=== PATIENT | female | born 1980 | race Asian ===

== ENCOUNTER 2017-03-26 16:57 | Inpatient (IN) ==
[2017-03-26] MEDS ORDERED: Ondansetron 4 MG/2 ML VIAL IVP PRN (17:03)
[2017-03-26] MEDS ORDERED: Naloxone 0.4 MG/ML INJ IVP PRN (17:03)
[2017-03-26] MEDS ORDERED: *HR* Nalbuphine 20 MG/ML AMPUL IVP PRN (17:03)
[2017-03-26] MEDS ORDERED: Lidocaine 1% 20 ML MDV INFILT PRN (17:03)
[2017-03-26] MEDS ORDERED: miSOPROStol 25 MCG TABLET VG PRN (17:03)
[2017-03-26] MEDS ORDERED: Famotidine 20 MG/2 ML VIAL IVP PRN (17:03)
--- NOTE | 2017-03-26 17:27 | OB/GYN History & Physical ---
Date of Encounter: 03/26/17 Time of Encounter: 17:04 Assessment and Plan (1) 39 weeks gestation of Current visit: Yes Status: Acute at 39 1/7 weeks gestation presents for IOL secondary to AMA. Blood Type: O+, Antibody negative GBS: Negative Hep B: non-reactive HIV: non-reactive RPR: Negative Rubella: Positive Varicella:Positive Plan: -Admit for IOL -Galva, EFM -CBC, UDS -Cytotec 25mg VG Q4hrx2 -LR 1L @125cc/hr -Clear liquid diet -Nubain 10mg IVP Q2h PRN -Epidural when able (2) Elective induction of labor planned Current visit: Yes Status: Acute (3) Advanced maternal age during in third trimester Current visit: Yes Status: Acute History of Present Illness Chief complaint: IOL HPI: Ms. Berry is a year old female at 39 1/7 weeks gestation who presents to L& D for IOL secondary to AMA. Her has been uncomplicated. She denies any vaginal bleeding, pain, itching, foul smelling discharge or leaking fluid. She has positive movement. Denies DIAL, dizziness, fever, chills, CP, SOB, Nausea, vomiting. Blood Type: O+, Antibody negative GBS: Negative Hep B: non-reactive HIV: non-reactive RPR: Negative Rubella: Positive Varicella:Positive Past Med Surg Social Fam HX - Past Medical History Attestation: Yes The following information was validated with the patient. Medical history: no medical history - Social History Smoking Status: Unknown if ever smoked Alcohol use: none - Family History Sister Age: 33 Living Status: Still Living Hx Family Cardiac Disorders: No Hx Family Respiratory Disorders: No Hx Family Cancer: No Hx Family GI Disorders: No Hx Family Genitourinary Disorders: No Hx Family Endocrine Disorder: No Hx Family Musculoskeletal Disorders: No Hx Family Neuromuscular Disorders: No Hx Family Neurologic Disorders: No Hx Family HEENT Disorders: No Hx Family Autoimmune Disorders: No Hx Family Reproductive Disorders: No Hx Family Psychosocial Disorders: No Hx Family Medical Disorders: No Obstetrical History - Pregnancies : 1 Para: 0 Term: 0 : 0 Ab's: 0 Livin Medications and Allergies Formula Tablet 1 tab PO DAILY 03/26/17 [History] 3 Allergy/AdvReac Type Severity Reaction Status Date / Time No Known Allergies Allergy Verified 04/05/15 11:06 Review of System OB All systems PM: reviewed and no additional remarkable complaints except as stated Exam - Constitutional Constitutional: well developed, well nourished, no acute distress, average body habitus - HEENT HEENT: EOMI, PERRL, Normocephaly, Mucus Membranes Moist - Neck Neck exam: full ROM, normal inspection, supple, trachea midline - Lungs Respiratory exam: CTAB - Cardiovascular Cardiovascular exam: RRR, +S1, +S2 - Abdomen Abdomen: Present: bowel sounds normal, gravid, non tender - Extremities Extremities exam: normal capillary refill, normal inspection, radial pulses palpable and symmetrical Deep Tendon Reflex Grade: 2+ Normal - Vagina Vagina: Present: normal moisture - Cervix Dilation: 0 (FT) Effacement: 80 - Uterus Uterus exam: Present: normal size, normal contour Results Result Diagrams: 03/26/17 17:24 All other labs normal.
[2017-03-26 17:33] LABS: Basophils # 0.1 K/mcL (0.0-0.2); Basophils % 0.4 %; Eosinophils # 0.1 K/mcL (0.0-0.6); Eosinophils % 0.6 %; Hematocrit 37.2 % (35.3-44.9); Hemoglobin 12.4 g/dL (11.5-15.4); Immature Platelets 3.4 % (1.1-6.1); Lymphocytes # 2.1 K/mcL (0.6-4.6); Lymphocytes % 16.6 %; Mean Corpuscular HGB Conc 33.3 g/dL (31.6-35.5); Mean Corpuscular Hemoglobin 28.8 pg (28.0-33.3); Mean Corpuscular Volume 86.5 fL (83.0-100.0); Mean Platelet Volume 9.8 fL (9.4-12.4); Monocytes # 0.8 K/mcL (0.0-1.3); Monocytes % 6.5 %; Neutrophils # 9.5 K/mcL (1.6-8.9); Platelet Count 316 K/mcL (140-400); Red Cell Distribution Width 14.6 % (11.5-14.5); Segmented Neutrophils % 73.9 %
[2017-03-26] MEDS: Ringers Solution, Lactated 1,000 ML IVC SCH (18:52)
--- NOTE | 2017-03-26 20:26 | Anesthesia Evaluation PreOp ---
Date of Encounter: 03/26/17 Time of Encounter: 20:23 - Past History Planned Operation: vaginal del, G1 induction Cardiac History: Denies any Significant Hx Pulmonary History: Denies Any Significant HX STUNNER ANIMAL History: Denies Any Significant HX Other Medical History: Denies Any Significant HX Anesthesia History: No Prior Anesthetic Complications, Past Anesthesia (no family hx. of problems) Alcohol Use: none Drug use: none Medications and Allergies Formula Tablet 1 tab PO DAILY 03/26/17 [History] 3 Allergy/AdvReac Type Severity Reaction Status Date / Time No Known Allergies Allergy Verified 04/05/15 11:06 Anesthesia Results - Labs 03/26/17 17:24 Anesthesia Exam - HEENT Pupil (Motor): Pupils equal Mallampati: II Teeth: Normal Oral Opening: Greater than 3 - STUNNER ANIMAL LOC: Oriented STUNNER ANIMAL Motor: Normal RUE, Normal LUE, Normal RLE, Normal LLE, Normal Face STUNNER ANIMAL Sensory: Normal: RUE, LUE, RLE, LLE, Face - Cardiac Rhythm: Regular Murmur: None - Pulmonary Breath Sounds: bilateral Clear Respiratory Effort: Symmetrical Anesthesia Assess/Plan ASA Score: 2 Modified [place] Scale for Level of Consciousness: Cooperative, oriented, and tranquil Anesthetic Plan: General, Regional Monitoring Plan: Standard Monitors
--- NOTE | 2017-03-26 20:35 | OB Labor Progress Note ---
Date of Encounter: 03/26/17 Time of Encounter: 20:33 Labor Progress Note - Subjective Subjective: Resting comfortably in bed. - Vital Signs Vital Signs: VSS - Cervix Cervix: 1/50/-1 midposition medium consistency - Heart Tones Heart Tones: 160's with moderate variability and 15 x 15 accels and no decels. Category I tracing. - [place]: Contractions every 3-5 minutes lasting 45-60 seconds in length. Palpate mild. - Interventions Interventions: Attempted Cervical velazquez bulb placement x1. Unable to place. Will give second dose of cyctotec after uterus relaxes. Attempt cervical velazquez if needed after next dose of cytotec. - Plan Plan: Continue routine labor management GBS negative Patient may have nubain upon request/epidural after 3cm dilated Attempt cervical velazquez placement after next dose of cytotec Cytotec 4 hour after first dose Anticipate vaginal delivery POC per consult with Dr Jones.
[2017-03-27] MEDS: Ringers Solution, Lactated 1,000 ML IVC SCH ×3 (00:22→03:58)
--- NOTE | 2017-03-27 01:11 | OB Labor Progress Note ---
Date of Encounter: 03/27/17 Time of Encounter: 01:09 Labor Progress Note - Subjective Subjective: Pt getting more uncomfortable with uc's s/p 1 dose of cytotec. - Cervix Cervix: 2/80/-2 - Heart Tones Heart Tones: RNST - Funk Funk: UC's q 3 min - Interventions Interventions: Moon catheter placed into cervix without difficulty. Pt tolerated well. Balloon filled with 40 cc sterile saline - Plan Plan: Expect
[2017-03-27] MEDS ORDERED: Epidural Premix (fent/bupiv) 110 ML EP ONE ×2 (02:02→09:21)
[2017-03-27] MEDS ORDERED: EPHEDrine 50 MG/ML VIAL ONE (02:34)
--- NOTE | 2017-03-27 02:47 | Anesthesia Procedures ---
Date of Encounter: 03/27/17 Time of Encounter: 02:13 Procedures: Anesthesia - Epidural/Spinal Patient ID/Chart reviewed: Yes Patient examined: Yes OB Eval: Gestational age: term OB Eval: : 1 OB Eval: Contractions: Non-stressed pattern Consent Obtained: No Supplemental Oxygen: None/Room Air Site Prep: Aseptic Technique, Sterile prep and drape, 0.5% Chlorhexidine/Alcohol Patient position: right lateral decubitus Local Anesthetic: Lidocaine 1% Amount of Local Anesthetic used: 2 Touhy Needle Gauge: 18 Touhy Needle Depth (cm): 6 Catheter Depth at Skin (cm): 10 Test Dose (1.5% Lido + Epi): Volume given (mls): 3 Test Dose Result: Negative Loading Dose: Other: 10ml from solution Loading Dose Administered: Thru Catheter Infusion Med: 0.125% Bupivacaine w/ 2 mcg/ml Fentanyl Infusion Rate (mls/hr): [address]: Tegaderm, Tape Interspace Used: L3-L4 Loss of Resistance (DORETHA): Yes (saline) Blood: No CSF: No Paresthesia: No Procedure: vss, mild hypotension = tx with 10mg ephedrine, FHR stable per RNs;
[2017-03-27] MEDS ORDERED: Oxytocin 20 units/ LR 1000 mL 20 UNIT/1,000 ML BAG IVC SCH ×3 (04:30→21:31)
[2017-03-27 06:31] LABS: Amphetamine Screen,Urine Negative ng/mL (Cutoff=1000); Barbiturate Screen,Urine Negative ng/mL (Cutoff=200); Benzodiazepines Screen,Urine Negative ng/mL (Cutoff=200); Cannabinoid Screen,Urine Negative ng/mL (Cutoff = 50); Cocaine Screen,Urine Negative ng/mL (Cutoff= 300); Opiate Screen,Urine Negative ng/mL (Cutoff=300); Phencyclidine Screen,Urine Negative ng/mL (Cutoff=25)
--- NOTE | 2017-03-27 10:52 | OB Labor Progress Note ---
Date of Encounter: 03/27/17 Time of Encounter: 10:50 Labor Progress Note - Subjective Subjective: Pt with epidural, feels rectal pressure with contractions, - Cervix Cervix: 7/100/0 - Heart Tones Heart Tones: 150/moderate/+accels/variables/ Cat II - [place]: IUPC placed - Interventions Interventions: AROM clear fluid IUPC placed. positioned to right lateral with peanut ball - Plan Plan: Continue pitocin per policy Anticipate
[2017-03-27] MEDS ORDERED: Lidocaine/EPI 1:200k 2% PF 20 ML VIAL ONE (13:44)
[2017-03-27] MEDS ORDERED: Dexamethasone 4 MG/ML VIAL ONE (13:46)
[2017-03-27] MEDS ORDERED: Ondansetron 4 MG/2 ML VIAL ONE (13:46)
--- NOTE | 2017-03-27 13:57 | Anesthesia Progress Note ---
Date of Encounter: 03/27/17 Time of Encounter: 13:55 Anesthesia Note - Note Note: 03/27/17 13:55 called for increased pain during contractions. pt assessed. vss. epidural rate increased to 16ml/hr. 5ml of 2% lidocaine with epi given. adequate response from patient. pt comfortable and resting now. vss. fhr stable.
[2017-03-27] MEDS ORDERED: *HR* Oxytocin 10 UNIT/ML VIAL IM ONE ×2 (14:02→19:00)
[2017-03-27] MEDS ORDERED: Metoclopramide 10 MG/2 ML VIAL IVP ONE (17:16)
[2017-03-27] MEDS ORDERED: ceFAZolin 1,000 MG in D5% in Water (Mini-Bag+) 100 ML IVPB ONE (17:17)
--- NOTE | 2017-03-27 17:19 | OB/GYN Progress Note ---
Date of Encounter: 03/27/17 Time of Encounter: 17:17 - Assessment and Plan (1) 39 weeks gestation of Current Visit: Yes Status: Acute (2) Advanced maternal age during in third trimester Current Visit: Yes Status: Acute Spoke with patient. Category 2 FHR tracing with pitocin turned on. Informed consent obtained and staff notified of need for section. Objective - Vital Signs Vital Signs: Vital Signs Temp Pulse Resp BP 03/26/17 17:42 97.4 F 83 16 111/72 Intake and Output 03/27/17 03/27/17 03/27/17 07:59 15:59 23:59 Intake Total 3000 / 3000 Balance 3000 / 3000 Intake: IV Fluids 3000 / 3000 Lactated Ringers 1,000 ML @ 125 3000 / 3000 mls/hr IVC .Q8H [facility] Rx#: [id number] - Labs Labs: Abnormal lab results WBC 12.9 K/mcL (4.3-11.1) H 03/26/17 17:24 RDW 14.6 % (11.5-14.5) H 03/26/17 17:24 Neutrophils # 9.5 K/mcL (1.6-8.9) H 03/26/17 17:24
[2017-03-27] MEDS ORDERED: Lidocaine -MPF 2% 5 ML VIAL ONE (18:10)
[2017-03-27] MEDS ORDERED: *HR* Morphine Sulfate/PF 5 MG/10 ML AMPUL ONE (18:29)
[2017-03-27] MEDS ORDERED: Naloxone 0.4 MG/ML INJ IVP PRN ×2 (18:50→21:26)
[2017-03-27] MEDS ORDERED: *HR* Promethazine 25 MG/ML VIAL IVP PRN (18:50)
[2017-03-27] MEDS ORDERED: Ondansetron 4 MG/2 ML VIAL IVP ONE (18:50)
[2017-03-27] MEDS ORDERED: *HR* Meperidine 25 MG/ML SYRINGE IVP PRN (18:50)
[2017-03-27] MEDS ORDERED: Ringers Solution, Lactated 1,000 ML IVC SCH (19:00)
--- NOTE | 2017-03-27 19:07 | OB/GYN Procedure Note ---
Section - Date of procedure: 03/27/17 Preop diagnosis: category 2 FHT tracing Post-op diagnosis: same Procedure: section, primary low transverse Surgeon: Diana Jones Estimated blood loss (cc): 500 Greens Picker: Criselda Meza Clean Out Driller Helper: Peter Marvin Anesthesia Type: Epidural section complications: none Disposition: L&D Recovery Room Specimens: Cord blood - Infant (s) Infant A Delivery Date: 03/27/17 Delivery Time: 18:19 Presentation: vertex Gender: Female Viability: Viable Pounds: 7 Ounces: 5 Gram Weight: 3.33 kg at 1 minute: 9 at 5 minutes: 10 Shoulder Dystocia: not encountered Specimens collected: cord blood Placenta: spontaneous Cord: 3 umbilical vessels - Narrative Narrative: Patient was taken to the operative suite and placed under spinal anesthetic. She was then prepped and draped in normal sterile fashion in the dorsal supine position. Timeout was then performed. Antibiotics were given at room time. SCDs are on and active. Pfannenstiel skin incision is then made and carried through to underlying layer of fascia with the Bovie. The fascia was then incised in the midline and incision extended laterally with the Santana scissors. The fascia was tented up and dissected off the rectus muscles sharply. The rectus muscles were in the midline and the peritoneum was tented up and entered sharply with the Metzenbaum scissors. The peritoneal incision was then extended bluntly. The bladder blade was then inserted and the vesicouterine peritoneum was entered sharply. Bladder flap was created digitally. A low transverse uterine incision was then made. The vertex was brought to the incision and the was delivered using fundal pressure. There was no nuchal cord. Cord was clamped and cut. was handed to waiting nursery staff. Placenta delivered spontaneously complete and intact with a three-vessel cord. The uterus was cleared of all clots and debris using moist laparotomy sponge. The uterine incision was then closed using 0 Vicryl in a running locked fashion. A second layer of the same suture was used to obtain excellent hemostasis. The abdomen was then cleared of all clots and debris using copious irrigation. The fascial incision was then closed using 0 Vicryl in a running fashion. The skin was closed using 4-0 Vicryl in a subcuticular fashion. Steri- Strips and sterile dressing are then placed. Mother and taken to recovery in stable condition.
[2017-03-27] MEDS: *HR* HYDROmorphone (PF) 1 MG/ML SYRINGE IVP PRN ×2 (19:33→19:50)
[2017-03-27] MEDS ORDERED: cephALEXin 500 MG CAPSULE PO SCH (21:00)
[2017-03-27] MEDS ORDERED: Ondansetron 4 MG/2 ML VIAL IVP PRN ×2 (21:26→21:31)
[2017-03-27] MEDS ORDERED: *HR* Morphine 2 MG/ML SYRINGE IVP PRN (21:26)
[2017-03-27] MEDS ORDERED: *HR* HYDROmorphone (PF) 1 MG/ML SYRINGE IVP PRN (21:26)
--- NOTE | 2017-03-27 21:26 | Anesthesia Evaluation Post Op ---
Date of Encounter: 03/27/17 Time of Encounter: 21:25 - Vital Signs Vital Signs: Vital Signs Temperature 97.4 F 03/26/17 17:42 Pulse Rate 83 03/26/17 17:42 Respiratory Rate 16 03/26/17 17:42 Blood Pressure 111/72 03/26/17 17:42 Temperature 97.4 F 03/26/17 17:42 Pulse Rate 83 03/26/17 17:42 Respiratory Rate 16 03/26/17 17:42 Blood Pressure 111/72 03/26/17 17:42 - Lungs Lungs: Clear Ascult./Percussion - Airway Airway: Non-obstructed - Cardiovascular Regular Rate - Mental Status Mental Status: Alert & Oriented, Answers Appropriately - Pain Pain Scale: 3 Pain Scale used: Numeric (1 - 10) - Nausea Vomiting Nausea Vomiting: Not Present - Hydration Hydration: NPO, Moon catheter - Discharge PostOp Status: Transfer Patient to floor
[2017-03-27] MEDS ORDERED: Simethicone 80 MG TAB.CHEW PO PRN (21:31)
[2017-03-27] MEDS ORDERED: Metoclopramide 10 MG/2 ML VIAL IVP PRN (21:31)
[2017-03-27] MEDS ORDERED: Acetaminophen 325 MG TABLET PO PRN (21:31)
[2017-03-27] MEDS ORDERED: Sennosides 8.6 MG TABLET PO PRN (21:31)
[2017-03-28] MEDS: Ibuprofen 600 MG TABLET PO PRN ×4 (03:49→20:27)
[2017-03-28] MEDS ORDERED: Azithromycin 250 MG TABLET PO SCH (09:00)
[2017-03-28] MEDS: Prenatal Vit/FA 1 EACH TABLET PO SCH (09:28)
[2017-03-28] MEDS: cephALEXin 500 MG CAPSULE PO SCH ×3 (09:30→20:29)
[2017-03-28] MEDS: Azithromycin 250 MG TABLET PO SCH (09:31)
--- NOTE | 2017-03-28 09:43 | OB/GYN Progress Note ---
Date of Encounter: 03/28/17 Time of Encounter: 09:40 - Assessment and Plan (1) Status post primary low transverse section Current Visit: Yes Status: Acute Continue post op/ care Encourage ambulation Subjective - Subjective Principal diagnosis: Status post primary Interval history: Pt sitting up in bed eating breakfast. Denies needs at this time. Informed patient that there is stronger pain medication ordered if she needs it. She verbalized understanding. Patient notified that discharge is anticipated tomorrow. Patient reports: appetite normal, voiding normally, pain well controlled, ambulating normally [place]: doing well, bottle feeding Objective - Vital Signs Latest vital signs: Vital Signs Temp Pulse Resp BP Pulse Ox 03/28/17 04:15 98.0 F 99 14 112/71 95 03/28/17 00:30 98.3 F 88 14 106/63 96 03/27/17 23:35 98.4 F 86 14 116/68 95 03/27/17 22:30 98.2 F 86 14 111/68 95 03/27/17 22:00 98.1 F 81 16 109/70 95 03/27/17 21:31 98.5 F 84 16 109/62 Intake and Output 03/27/17 03/28/17 03/28/17 23:59 07:59 15:59 Output Total 800 / 800 1150 / 1150 Balance -800 / -800 -1150 / -1150 Output: Catheter 800 / 800 1150 / 1150 Other: Weight 62.9 kg - Exam Lungs: bilateral: normal Chest: Normal S1, Normal S2 Extremities: Present: normal Abdomen: Present: normal appearance, soft Incision: Present: dressed Uterus: Present: normal, firm Fundal Height: 0 (@u)
[2017-03-28] MEDS: *HR* OxyCODONE/APAP 5/325 TABLET PO PRN ×2 (10:30→17:17)
[2017-03-29] MEDS: Prenatal Vit/FA 1 EACH TABLET PO SCH (08:17)
[2017-03-29] MEDS: *HR* OxyCODONE/APAP 5/325 TABLET PO PRN (08:17)
[2017-03-29] MEDS: Azithromycin 250 MG TABLET PO SCH (08:18)
[2017-03-29] MEDS: cephALEXin 500 MG CAPSULE PO SCH (08:18)
[2017-03-29 08:33] VITALS: BP 101/62
--- NOTE | 2017-03-29 08:42 | Discharge Summary ---
Date of Encounter: 03/29/17 Time of Encounter: 08:42 - Discharge Diagnosis (1) Status post primary low transverse section Priority: Primary Status: Acute Comments: Patient doing well s/p repeat CS day 2. Pain is well controlled with pain medication as ordered Bottle Feeding Lochia is light and without clots. Voiding and passing flatus without difficulty Tolerating regular diet Will discharge today - Discharge Medications Prescriptions: Ibuprofen [Motrin] 600 mg PO Q6HR PRN #60 tablet PRN Reason: Cramping Azithromycin [Zithromax] 500 mg PO DAILY #4 tablet cephALEXin [Keflex] 500 mg PO TID #27 capsule Docusate [Colace] 100 mg PO BID #30 capsule Ferrous Sulfate 325 mg PO DAILY #60 tablet OxyCODONE/APAP 5/325 [Percocet 5/325 MG] 1 each PO Q6H PRN #20 tablet PRN Reason: Moderate pain 4-6 Simethicone [Gas-X] 80 mg PO TID PRN #20 tab.chew PRN Reason: Dyspepsia Home Medications: Formula Tablet 1 tab PO DAILY 03/26/17 [History] Azithromycin [Zithromax] 500 mg PO DAILY #4 tablet 03/29/17 [Rx] Docusate [Colace] 100 mg PO BID #30 capsule 03/29/17 [Rx] Ferrous Sulfate 325 mg PO DAILY #60 tablet 03/29/17 [Rx] Ibuprofen [Motrin] 600 mg PO Q6HR PRN #60 tablet 03/29/17 [Rx] OxyCODONE/APAP 5/325 [Percocet 5/325 MG] 1 each PO Q6H PRN #20 tablet 03/29/17 [ Rx] Simethicone [Gas-X] 80 mg PO TID PRN #20 tab.chew 03/29/17 [Rx] cephALEXin [Keflex] 500 mg PO TID #27 capsule 03/29/17 [Rx] Allergies/Adverse Reactions: 3 Allergy/AdvReac Type Severity Reaction Status Date / Time No Known Allergies Allergy Verified 04/05/15 11:06 Data Procedures and tests throughout hospitalization: Laboratory Tests 03/26/17 03/27/17 17:24 06:03 WBC 12.9 H RBC 4.30 Hgb 12.4 Hct 37.2 MCV 86.5 MCH 28.8 MCHC 33.3 RDW 14.6 H Plt Count 316 MPV 9.8 Immature Gran % 2.0 Seg Neutrophils % 73.9 Lymphocytes % 16.6 Monocytes % 6.5 Eosinophils % 0.6 Basophils % 0.4 Neutrophils # 9.5 H Lymphocytes # 2.1 Monocytes # 0.8 Eosinophils # 0.1 Basophils # 0.1 Immature Plt Fraction 3.4 Urine Opiates Screen Negative Ur Barbiturates Screen Negative Ur Phencyclidine Scrn Negative Ur Amphetamines Screen Negative U Benzodiazepines Scrn Negative Urine Cocaine Screen Negative U Marijuana (THC) Screen Negative Date of admission: 03/26/17 16:57 Primary care physician: Maylin Madrid CNP Consults: 03/27/17 21:31 Consult to Sole Cutter (W&C) [CONS] Routine Reason For Exam: Reason for SW Consult: language barrier Discharging clinician: Eunice Vergara Anticipated date of discharge: 03/29/17 - Patient Status Disposition: Home, Self-Care Condition: Good Functional capacity at discharge: independent ambulation Overall status at discharge: patient is progressing back to baseline - Discharge Instructions Follow Up With: Maylin Madrid CNP [Primary Care Provider] - Diana Jones DO [Partnered Physician] - - Diet and Activity Activity: increase activity as tolerated Diet: regular diet Hospital Course Reason for admission: induction of labor, IUP at term Delivery: section Episiotomy: none Laceration: none Other procedures: none complications: none Discharge diagnosis: IUP at term delivered [place] baby: female Time Attestation: Total time spent providing and/or coordinating discharge services: Time Spent: Less than 30 minutes - VTE Reasons for not Prescribing Prophylaxis: Treatment not Indicated - Low risk for VTE Documentation of Mechanical Device: Intermittent pneumatic compression device Exam - Constitutional Vitals: Temp Pulse Resp BP Pulse Ox 98.2 F 106 16 101/62 99 03/29/17 07:45 03/29/17 07:45 03/29/17 07:45 03/29/17 07:45 03/28/17 20:10 General appearance IM: cooperative, A&O X 3, pleasant - Respiratory Respiratory exam: Present: CTAB - Cardiovascular Cardiovascular exam IM: Present: RRR, +S1, +S2 - GI/Abdominal GI/Abdominal exam IM: normal bowel sounds, soft Incision: normal, dry, intact - Rectal Rectal exam: deferred - Uterine Tone: Firm Uterus Position: 1 Finger Below Umbilicus, Midline - Extremities Exam Extremities exam IM: Present: normal capillary refill, normal inspection, radial pulses palpable and symmetrical - Neurological Exam Neurological exam: alert, oriented X3, reflexes normal
[2017-03-29] MEDS ORDERED: FLU VACC QS2017-18(6M-36M)/PF 0.5 ML SYRINGE IM ONE (10:41)
[2017-03-29] MEDS ORDERED: FLUARIX QUAD 2017-18 36MOS UP/PF 0.5 ML SYRINGE IM ONE (11:16)
== END 2017-03-29 14:00 | disposition home or self-care (01) | DRG 540 ==
LOC: 1NENULAB 16:57 → 1NENUOBS 03-27 22:36
PROVIDERS: ADMIT Obstetrics & Gynecology; ATTEND Obstetrics & Gynecology